=== PATIENT | male | born 1970 | race Caucasian/White ===

== ENCOUNTER 2023-06-22 10:11 | Emergency (ER) | payer OTHER ==
[~2023-06-22] VITALS: Ht 172.7 cm; Wt 95.2 kg
[2023-06-22 10:19] VITALS: BP 144/99
== END 2023-06-22 12:12 | disposition home or self-care (01) ==
LOC: ER 10:11
DX: S62.633A Displaced fracture of distal phalanx of left middle finger, initial encounter for closed fracture (principal); W22.8XXA Striking against or struck by other objects, initial encounter
CPT/HCPCS: 73140; 99283-25